=== PATIENT | female | born 1965 | race Caucasian/White ===

== ENCOUNTER → 2020-03-10 | Outpatient (CLI) | payer BC, OTHER ==
[2020-03-11 09:14] LABS: HBSAG SCREEN Negative (Negative); HCV AB <0.1 (0.0-0.9); HEP B CORE AB, TOT Negative (Negative)
[2020-03-11 12:14] LABS: RHEUMATOID ARTHRITIS FACTOR <10.0 IU/mL (0.0-13.9)
[2020-03-11 22:09] LABS: CCP ANTIBODIES IGG/IGA 4 units (0-19)
== END ==
LOC: LAB 09:41
PROVIDERS: Internal Medicine
DX: D89.89 Other specified disorders involving the immune mechanism, not elsewhere classified (principal); M25.50 Pain in unspecified joint; Z79.899 Other long term (current) drug therapy
CPT/HCPCS: 36415; 83520; 86200; 86431; 86704; 86803; 87340

== ENCOUNTER 2021-04-02 11:11 | Observation (INO) | payer BC ==
[~2021-04-02] VITALS: Ht 154.9 cm; Wt 64.4 kg
[2021-04-02 13:01] LABS: HEMOGLOBIN 14.3 gm/dl (12.3-15.3); RED BLOOD COUNT 4.79 M/UL (4.00-5.10); WHITE BLOOD COUNT 11.6 K/UL (4.5-11.0)
[2021-04-02 14:16] LABS: BUN/CREATININE RATIO 22 (0-10)
[2021-04-02] MEDS ORDERED: FAMOTIDINE40 MG PO (19:58)
[2021-04-02] MEDS ORDERED: HYDROCHLOROTHIA25 MG PO (19:58)
[2021-04-02] MEDS ORDERED: TRAMADOL HCL50 MG PO (19:59)
[2021-04-02] MEDS ORDERED: DULOXETINE HCL30 MG PO (20:00)
[2021-04-02] MEDS ORDERED: GABAPENTIN300 MG PO (20:00)
[2021-04-03 06:05] LABS: BUN/CREATININE RATIO 27 (0-10)
[2021-04-03 07:05] LABS: RED BLOOD COUNT 4.86 M/UL (4.00-5.10)
--- NOTE | 2021-04-03 11:05 | NUR ---
@~1040 DR. ROWELL ON FLOOR AND SPOKE WITH PATIENT ABOUT OPTIONS AND PROCESSES OF TRANSFERING TO ANOTHER FACILITY, INFORMED OF RISKS, PT DECIDED TO LEAVE AMA AND GO TO POV, PT WAS INSTRUCTED OF THE NEED/IMPORTANCE TO GO STRAIGHT TO THE HOSPITAL OF HER WISHES.
== END 2021-04-03 11:05 | disposition left against medical advice (07) ==
LOC: ER1 11:11 → CDU 16:53 → CCU 20:25
PROVIDERS: Physician Assistant; ADMIT Internal Medicine
DX: I21.4 Non-ST elevation (NSTEMI) myocardial infarction (principal); I10 Essential (primary) hypertension; Z20.822 Contact with and (suspected) exposure to COVID-19; I20.0 Unstable angina; E78.5 Hyperlipidemia, unspecified; Q24.5 Malformation of coronary vessels; F41.9 Anxiety disorder, unspecified; I47.2 Ventricular tachycardia; K21.9 Gastro-esophageal reflux disease without esophagitis; M19.90 Unspecified osteoarthritis, unspecified site; Z53.29 Procedure and treatment not carried out because of patient's decision for other reasons; Z79.899 Other long term (current) drug therapy; Z88.5 Allergy status to narcotic agent; Z88.8 Allergy status to other drugs, medicaments and biological substances
CPT/HCPCS: 36415; 71045; 80048; 80053; 80061; 82550; 82553; 83036; 83540; 83550; 83735; 83874; 84484; 85025; 93005; 99285; G0378; J1644; J1650; U0002

== ENCOUNTER → 2021-05-15 | Outpatient (CLI) | payer BC ==
[~2021-05-15] MED LIST: DULOXETINE HCL30 MG PO; FAMOTIDINE40 MG PO; GABAPENTIN300 MG PO; HYDROCHLOROTHIA25 MG PO; TRAMADOL HCL50 MG PO
== END ==
LOC: HEART 5 09:49
DX: J45.991 Cough variant asthma (principal)
CPT/HCPCS: 94010; 94729; 95012

== ENCOUNTER → 2021-06-02 | Outpatient (CLI) | payer BC | LOC: KOH-I 14:30 | DX: R05.9 Cough, unspecified (principal); R91.1 Solitary pulmonary nodule | CPT/HCPCS: 71250 ==